=== PATIENT | male | born 1970 | race Caucasian/White ===

== ENCOUNTER 2017-03-08 16:54 | Inpatient (IN) | payer MEDICAID ==
[2017-03-08] MEDS ORDERED: HYDROmorphone 0.5 MG/0.5 ML Syringe IVPUSH ONE (17:38)
--- NOTE | 2017-03-08 17:43 | EDM.PDOC ---
<Chidi Sparks - Last Filed: 03/08/17 17:38> ED HPI GENERAL MEDICAL PROBLEM - General Chief Complaint: Abdominal Pain Stated Complaint: LOWER ABD PAIN Time Seen by Provider: 03/08/17 17:30 Source of Information: Reports: Patient, Old Records, RN History Limitations: Reports: No Limitations - History of Present Illness INITIAL COMMENTS - FREE TEXT/NARRATIVE: 47 yo male presents with progressive RLQ abdominal pain for nearly a week. Thinks he may have had a fever at times. No self tx today. Pain does not move around. Moving or coughing increases his pain. No known exposures. Vomited several times last Th, then once more last night. No prior abdominal surgeries. Has not been seen for this problem before today. No change in bowel or bladder function. No current nausea. 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) Right Lower Abdomen Pain Score (Numeric/FACES): 6 - Related Data Allergies Allergy/AdvReac Type Severity Reaction Status Date / Time cat dander Allergy Chest Verified 10/10/14 23:23 Presssure turkey feathers Allergy Chest Uncoded 10/10/14 23:23 Presssure Home Meds: Home Meds Aspirin [Aspirin EC] 81 mg PO DAILY 10/10/14 [History] Insulin Aspart [NovoLOG] 10 units SUBCUT TID 10/10/14 [History] Insulin Detemir [Levemir] 64 units SUBCUT BID 10/10/14 [History] Lisinopril [Lisinopril] 10 mg PO DAILY 10/10/14 [History] Ranitidine HCl [Zantac] 150 mg PO BID 03/08/17 [History] Simvastatin [Zocor] 03/08/17 [History] Past Medical History Cardiovascular History: Reports: Hypertension Gastrointestinal History: Reports: GERD Endocrine/Metabolic History: Reports: Diabetes, Type I - Infectious Disease History Infectious Disease History: Reports: Chicken Pox, Measles, Mumps - Past Surgical History Head Surgeries/Procedures: Reports: None Cardiovascular Surgical History: Reports: None GI Surgical History: Reports: None Endocrine Surgical History: Reports: None Dermatological Surgical History: Reports: None Social & Family History - Family History Family Medical History: Noncontributory Cardiac: Reports: Pulmonary Hypertension - Tobacco Use Smoking Status *Q: Current Every Day Smoker Years of Tobacco use: 33 Packs/Tins Daily: 0.5 Used Tobacco, but Quit: No Second Hand Smoke Exposure: Yes - Caffeine Use Caffeine Use: Reports: Coffee, Soda, Tea - Recreational Drug Use Recreational Drug Use: No ED ROS GENERAL - Review of Systems Review Of Systems: See Below Constitutional: Reports: Fever (has not measured.) HEENT: Reports: No Symptoms Respiratory: Reports: No Symptoms Cardiovascular: Reports: Lightheadedness (mildy dizzy with standing) Endocrine: Reports: No Symptoms GI/Abdominal: Reports: Abdominal Pain, Nausea (not today.), Vomiting (not today) . Denies: Black Stool, Bloody Stool, Constipation, Diarrhea, Distension, Flatus , Hematemesis, Hematochezia, Melena : Reports: No Symptoms Musculoskeletal: Reports: No Symptoms Skin: Reports: No Symptoms Neurological: Reports: No Symptoms ED EXAM, GI/ABD - Physical Exam Exam: See Below Exam Limited By: No Limitations General Appearance: Alert, WD/WN, No Apparent Distress, Obese Eyes: Bilateral: Normal Appearance Ears: Normal External Exam, Normal Canal, Hearing Grossly Normal Nose: Normal Inspection, Normal Mucosa, No Blood Throat/Mouth: Normal Lips, Normal Oropharynx, Normal Voice, No Airway Compromise , Other (edentulous with slightly dry oral mucosa.). No: Normal Teeth Head: Atraumatic, Normocephalic Neck: Normal Inspection, Supple Respiratory/Chest: No Respiratory Distress, Lungs Clear, Normal Breath Sounds, No Accessory Muscle Use Cardiovascular: Regular Rate, Rhythm, Tachycardia (mildly tachy) GI/Abdominal Exam: No Distention, Guarding (mild), Rebound (mild), Tender (RLQ) , Abnormal Bowel Sounds (slightly increased.). No: Rigid Back Exam: Normal Inspection Extremities: Normal Inspection, Normal Range of Motion, Non-Tender, No Pedal Edema Neurological: Alert, Oriented, CN II-XII Intact, Normal Cognition, No Motor/ Sensory Deficits Psychiatric: Normal Affect, Normal Mood Skin Exam: Warm, Dry, Intact, Normal Color, No Rash Lymphatic: No Adenopathy Course - Vital Signs Last Recorded V/S: Last Vital Signs Temp 37.8 C 11/30/17 17:25 Pulse 105 H 03/08/17 19:30 Resp 20 03/08/17 19:30 BP 148/81 H 03/08/17 19:30 Pulse Ox 98 03/08/17 19:30 Orthostatic Blood Pressure [ 120/81 Standing] Orthostatic Blood Pressure [ 137/86 Sitting] Orthostatic Blood Pressure [ 138/81 Supine] - Orders/Labs/Meds Orders: Active Orders 24 hr Category Date Time Status Orthostatic Vital Signs [RC] ASDIRECTED Care 03/08/17 17:37 Active Abdomen Pelvis w Cont [CT] Stat Exams 03/08/17 18:45 Taken CULTURE URINE [RM] Stat Lab 03/08/17 18:43 Received Ampicillin/Sulbactam Na [Unasyn] 3 gm Med 03/08/17 20:20 Ordered Sodium Chloride 0.9% [Normal Saline] 100 ml IV ONETIME Aztreonam [Azactam] 1 gm Med 03/08/17 20:20 Ordered Sodium Chloride 0.9% [Normal Saline] 50 ml IV ONETIME Iopamidol [Isovue-300 (61%)] Med 03/08/17 19:00 Active 150 ml IV . DIRECTED Sodium Chloride 0.9% [Saline Flush] Med 03/08/17 17:37 Active 10 ml FLUSH ASDIRECTED PRN Saline Lock Insert [OM.PC] Routine Oth 03/08/17 17:37 Ordered Medication Orders Aztreonam 1 gm/ Sodium (Chloride) 50 mls @ 100 mls/hr IV ONETIME ONE Stop: 03/08/17 20:49 Ampicillin Sodium/Sulbactam (Sodium 3 gm/ Sodium Chloride) 100 mls @ 200 mls/ hr IV ONETIME ONE Stop: 03/08/17 20:49 Iopamidol (Isovue-300 (61%)) 150 ml IV . DIRECTED OLMAN Last Admin: 03/08/17 19:18 Dose: 150 ml Sodium Chloride (Saline Flush) 10 ml FLUSH ASDIRECTED PRN PRN Reason: Keep Vein Open Last Admin: 03/08/17 19:17 Dose: 10 ml Admin: 03/08/17 18:02 Dose: 10 ml Labs: Laboratory Tests 03/08/17 03/08/17 03/08/17 Range/Units 18:02 18:02 18:26 WBC 22.9 H (4.5-11.0) K/uL RBC 4.88 (4.30-5.90) M/uL Hgb 13.8 (12.0-15.0) g/dL Hct 41.3 (40.0-54.0) % MCV 85 (80-98) fL MCH 28 (27-31) pg MCHC 33 (32-36) % Plt Count 350 (150-400) K/uL Sodium 132 L (140-148) mmol/L Potassium 4.6 (3.6-5.2) mmol/L Chloride 97 L (100-108) mmol/L Carbon Dioxide 25 (21-32) mmol/L Anion Gap 14.6 H (5.0-14.0) mmol/L BUN 16 (7-18) mg/dL Creatinine 1.2 (0.8-1.3) mg/dL Est Cr Clr Drug Dosing 74.46 mL/min Estimated GFR (MDRD) > 60 (>60) Glucose 131 H (74-106) mg/dL Calcium 8.8 (8.5-10.1) mg/dL C-Reactive Protein 12.48 H (0.0-0.3) mg/dL Urine Color Wells Urine Appearance Cloudy Urine pH 5.0 (4.5-8.0) Ur Specific [place] 1.020 (1.008-1.030) Urine Protein 30 H (NEGATIVE) mg/dL Urine Glucose (UA) Normal (NEGATIVE) mg/dL Urine Ketones 15 H (NEGATIVE) mg/dL Urine Occult Blood Large (NEGATIVE) Urine Nitrite Negative (NEGAITVE) Urine Bilirubin Small (NEGATIVE) Urine Urobilinogen 1 (NORMAL) mg/dL Ur Leukocyte Esterase Negative (NEGATIVE) Urine RBC 5-10 H (0-5) Urine WBC 5-10 H (0-5) Ur Epithelial Cells Rare Amorphous Sediment Few Urine Bacteria Rare Urine Mucus Few Meds: Medications Generic Name Dose Route Start Last Admin Trade Name Freq PRN Reason Stop Dose Admin Aztreonam 1 gm/ Sodium 50 mls @ 100 mls/hr 03/08/17 20:20 Chloride IV 03/08/17 20:49 ONETIME ONE Ampicillin Sodium/Sulbactam 100 mls @ 200 mls/hr 03/08/17 20:20 Sodium 3 gm/ Sodium Chloride IV 03/08/17 20:49 ONETIME ONE Iopamidol 150 ml 03/08/17 19:00 03/08/17 19:18 Isovue-300 (61%) IV 150 ml . DIRECTED OLMAN Administration Sodium Chloride 10 ml 03/08/17 17:37 03/08/17 19:17 Saline Flush FLUSH 10 ml ASDIRECTED PRN Administration Keep Vein Open Discontinued Medications Generic Name Dose Route Start Last Admin Trade Name Sameer PRN Reason Stop Dose Admin Hydromorphone HCl 0.5 mg 03/08/17 17:38 03/08/17 18:02 Dilaudid IVPUSH 03/08/17 17:39 0.5 mg ONETIME ONE Administration Sodium Chloride 1,000 mls @ 1,000 mls/hr 03/08/17 17:49 03/08/17 18:07 Normal Saline IV 03/08/17 18:48 1,000 mls/hr .BOLUS ONE Administration Sodium Chloride 1,000 mls @ 999 minidrops/sec 03/08/17 18:26 03/08/17 20:21 Normal Saline IV 03/08/17 18:27 Not Given .BOLUS ONE Sodium Chloride 80 mls @ 3 mls/sec 03/08/17 19:00 03/08/17 19:17 Normal Saline IV 3 mls/sec ASDIRECTED OLMAN Administration Sodium Chloride 1,000 mls @ 999 mls/hr 03/08/17 19:14 03/08/17 19:28 Normal Saline IV 03/08/17 20:14 999 mls/hr .BOLUS ONE Administration Departure - Departure Disposition: Admitted As Inpatient 64 Clinical Impression: Ruptured appendix - Discharge Information Referrals: Nakul Garcia MD [Primary Care Provider] - Forms: ED Department Discharge Care Plan Goals: admit to Dr Ramsey Garzon - My Orders Last 24 Hours: My Active Orders 03/08/17 18:43 CULTURE URINE [RM] Stat 03/08/17 18:45 Abdomen Pelvis w Cont [CT] Stat 03/08/17 19:00 Iopamidol [Isovue-300 (61%)] 150 ml IV . DIRECTED 03/08/17 20:20 Ampicillin/Sulbactam Na [Unasyn] 3 gm Sodium Chloride 0.9% [Normal Saline] 100 ml IV ONETIME Aztreonam [Azactam] 1 gm Sodium Chloride 0.9% [Normal Saline] 50 ml IV ONETIME - Assessment/Plan Last 24 Hours: My Active Orders 03/08/17 18:43 CULTURE URINE [RM] Stat 03/08/17 18:45 Abdomen Pelvis w Cont [CT] Stat 03/08/17 19:00 Iopamidol [Isovue-300 (61%)] 150 ml IV . DIRECTED 03/08/17 20:20 Ampicillin/Sulbactam Na [Unasyn] 3 gm Sodium Chloride 0.9% [Normal Saline] 100 ml IV ONETIME Aztreonam [Azactam] 1 gm Sodium Chloride 0.9% [Normal Saline] 50 ml IV ONETIME <Elizabeth Camacho - Last Filed: 03/08/17 20:30> Course - Re-Assessments/Exams Free Text/Narrative Re-Assessment/Exam: 03/08/17 20:21 cat scan revealed a ruptured appendix with abcess formation, Dr Garzon was consulted and he lars do surgery at 5 thirty AM 03/08/17 20:28 Departure - Departure Time of Disposition: 20:29 Condition: Fair
[2017-03-08] MEDS ORDERED: Sodium Chloride 0.9% 1,000 ML IV ONE ×3 (17:49→19:14)
[2017-03-08] MEDS: Sodium Chloride 0.9% 10 ML Syringe FLUSH PRN ×2 (18:02→19:17)
[2017-03-08] MEDS ORDERED: Sodium Chloride 0.9% 80 ML IV SCH (19:00)
[2017-03-08] MEDS ORDERED: Iopamidol 612 MG/ML 150 ML Bottle IV SCH (19:00)
[2017-03-08] MEDS ORDERED: Ampicillin/Sulbactam Na 3 GM in Sodium Chloride 0.9% 100 ML IV ONE (20:20)
[2017-03-08] MEDS ORDERED: Ondansetron 4 MG/2 ML SDV IVPUSH PRN (20:30)
[2017-03-08] MEDS ORDERED: Naloxone 0.4 MG/ML SDV IV PRN (20:30)
[2017-03-08] MEDS ORDERED: HYDROmorphone/Normal Saline 15 MG/30 ML PCA IV PRN (20:30)
[2017-03-08] MEDS ORDERED: Sodium Chloride 0.9% 1,000 ML IV SCH (20:30)
[2017-03-09] MEDS ORDERED: Ampicillin/Sulbactam Na 3 GM in Sodium Chloride 0.9% 100 ML IV SCH ×2 (02:30→08:00)
[2017-03-09] MEDS ORDERED: Bupivacaine 0.5%/EPINEPHrine 1:200,000 50 ML MDV ONE (04:51)
[2017-03-09] MEDS ORDERED: fentaNYL 250 MCG/5 ML SDV ONE ×2 (05:30→05:58)
[2017-03-09] MEDS ORDERED: Rocuronium 50 MG/5 ML Vial ONE ×2 (05:31→06:39)
[2017-03-09] MEDS ORDERED: Ondansetron 4 MG/2 ML SDV ONE (05:31)
[2017-03-09] MEDS ORDERED: Dexamethasone 4 MG/ML SDV ONE (05:31)
[2017-03-09] MEDS ORDERED: Propofol 200 MG/20 ML SDV ONE (05:31)
[2017-03-09] MEDS ORDERED: Neostigmine Methylsulfate 1 MG/ML 5 ML Syringe ONE (05:31)
[2017-03-09] MEDS ORDERED: Glycopyrrolate 0.2 MG/ML 5 ML MDV ONE (05:31)
[2017-03-09] MEDS: Aztreonam/Dextrose-Water 1 GM in Premix Bag 1 BAG IV SCH ×3 (05:45→22:22)
[2017-03-09] MEDS ORDERED: Meropenem 500 MG SDV ONE (06:00)
[2017-03-09] MEDS ORDERED: Lactated Ringers 1,000 ML ONE (06:04)
[2017-03-09] MEDS: fentaNYL 25 MCG/HR Transdermal Patch TRDERM SCH (06:41)
[2017-03-09] MEDS ORDERED: HYDROmorphone/Normal Saline 15 MG/30 ML PCA IV PRN (07:24)
[2017-03-09] MEDS ORDERED: hydrOXYzine HCl 100 MG/2 ML SDV IM ONE (08:00)
[2017-03-09] MEDS ORDERED: Ondansetron 4 MG/2 ML SDV IVPUSH PRN (08:29)
[2017-03-09] MEDS ORDERED: hydrOXYzine HCl 100 MG/2 ML SDV IM PRN (08:32)
[2017-03-09] MEDS ORDERED: hydrOXYzine HCl 25 MG Tab PO PRN (08:33)
[2017-03-09] MEDS ORDERED: Glucagon,Human Recombinant 1 MG Vial IM PRN (08:34)
[2017-03-09] MEDS ORDERED: Glucose Gel 15 GM in 37.5 GM Tube PO PRN (08:34)
[2017-03-09] MEDS ORDERED: 50% Dextrose in Water 50 ML Syringe IVPUSH PRN (08:34)
[2017-03-09] MEDS: Ampicillin/Sulbactam Na 3 GM in Sodium Chloride 0.9% 100 ML IV SCH ×3 (09:19→21:07)
[2017-03-09] MEDS: FENTANYL PATCH CHECK TOP SCH ×2 (09:24→21:15)
[2017-03-09] MEDS: Lisinopril 10 MG Tab PO SCH (09:29)
[2017-03-09] MEDS: Pantoprazole 40 MG Vial IV SCH (09:29)
[2017-03-09] MEDS: Insulin Detemir 100 Units/ML 3 ML Pen SUBCUT SCH ×2 (10:01→21:10)
[2017-03-09] MEDS: Insulin Aspart 100 Units/ML 3 ML Pen SUBCUT PRN ×3 (10:03→21:09)
[2017-03-09] MEDS: Lactated Ringers 1,000 ML IV SCH (12:15)
[2017-03-09] MEDS: Dextrose 5%-Lactated Ringers 1,000 ML IV SCH (17:53)
[2017-03-10] MEDS: Ampicillin/Sulbactam Na 3 GM in Sodium Chloride 0.9% 100 ML IV SCH ×4 (02:08→20:04)
[2017-03-10] MEDS: Dextrose 5%-Lactated Ringers 1,000 ML IV SCH ×3 (02:15→21:11)
[2017-03-10] MEDS: Lactated Ringers 1,000 ML IV SCH (02:15)
[2017-03-10] MEDS: Aztreonam/Dextrose-Water 1 GM in Premix Bag 1 BAG IV SCH ×3 (05:32→21:55)
[2017-03-10] MEDS: Pantoprazole 40 MG Vial IV SCH (07:57)
[2017-03-10] MEDS: Insulin Detemir 100 Units/ML 3 ML Pen SUBCUT SCH ×2 (08:13→23:12)
[2017-03-10] MEDS: Lisinopril 10 MG Tab PO SCH (08:15)
[2017-03-10] MEDS: FENTANYL PATCH CHECK TOP SCH ×2 (08:31→20:12)
[2017-03-10] MEDS: Insulin Aspart 100 Units/ML 3 ML Pen SUBCUT PRN (11:41)
[2017-03-11] MEDS: Ampicillin/Sulbactam Na 3 GM in Sodium Chloride 0.9% 100 ML IV SCH ×4 (01:37→20:00)
[2017-03-11] MEDS: Dextrose 5%-Lactated Ringers 1,000 ML IV SCH ×3 (03:05→18:12)
[2017-03-11] MEDS: Aztreonam/Dextrose-Water 1 GM in Premix Bag 1 BAG IV SCH ×3 (05:18→22:16)
[2017-03-11] MEDS: Insulin Aspart 100 Units/ML 3 ML Pen SUBCUT PRN ×4 (05:31→22:19)
[2017-03-11] MEDS ORDERED: Meropenem 500 MG SDV ONE (06:38)
[2017-03-11] MEDS ORDERED: Bupivacaine 0.5% 50 ML MDV ONE (06:38)
[2017-03-11] MEDS ORDERED: Lidocaine 1% with EPINEPHrine 1:100,000 50 ML MDV ONE (06:38)
[2017-03-11] MEDS: Pantoprazole 40 MG Vial IV SCH (07:14)
[2017-03-11] MEDS ORDERED: Propofol 200 MG/20 ML SDV ONE ×2 (07:22→07:44)
[2017-03-11] MEDS ORDERED: fentaNYL 100 MCG/2 ML SDV ONE (07:22)
[2017-03-11] MEDS ORDERED: Midazolam 1 MG/ML 2 ML SDV ONE (07:22)
[2017-03-11] MEDS: FENTANYL PATCH CHECK TOP SCH ×2 (08:45→20:39)
[2017-03-11] MEDS: Lisinopril 10 MG Tab PO SCH (08:46)
[2017-03-11] MEDS: Bisacodyl 5 MG Tab PO SCH ×2 (08:59→20:38)
[2017-03-11] MEDS ORDERED: Insulin Detemir 100 Units/ML 3 ML Pen SUBCUT ONE (09:00)
[2017-03-11] MEDS: Insulin Detemir 100 Units/ML 3 ML Pen SUBCUT SCH (09:27)
--- NOTE | 2017-03-11 14:54 | PN ---
DATE OF SERVICE: 03/10/2017 The patient has been afebrile with stable vital signs. Blood sugar control has been fairly good. Urine output was initially somewhat slow, has now picked up, and plan will be to back down on the IV to 125 mL total rate today. The plan will be to proceed with a delayed primary closure of abdominal incision in the morning, otherwise maximize activity, and work with pulmonary toilet. We will continue the present antibiotics. Saman Garzon MD /[id number]
--- NOTE | 2017-03-11 15:27 | OR ---
DATE OF PROCEDURE: 03/11/2017 PREOPERATIVE DIAGNOSIS: Open abdominal incision. POSTOPERATIVE DIAGNOSIS: Open abdominal incision. OPERATIVE PROCEDURE: Delayed primary closure of open abdominal incision. ANESTHESIA: Local plus IV sedation. INDICATIONS FOR PROCEDURE: The patient is 48 hours status post right colectomy for perforated appendicitis with pericolonic abscess and associated necrosis of a portion of the cecum. Because of the obvious contaminated nature of the incision, the skin and subcutaneous tissues were left open for planned delayed primary closure at this time. Potential risks including bleeding and infection were reviewed, and the patient wishes to proceed. DETAILS OF PROCEDURE: The patient was taken to the operating room and placed in a supine position, sitting up around 30 degrees to minimize aspiration risk. The abdominal dressing was taken down, the wound inspected and found to be clean. The wound was then prepped and draped, anesthetized with 1% lidocaine, mixed with Marcaine, and irrigated with meropenem- containing saline solution. A 10-Upper Sorbian round Robb-Jauregui drain was then placed through a stab wound inferior to the main incision, and incision then closed with 2 layers of 3-0 and 4-0 Vicryl stitch deep, and then som for the skin. The 2 remaining trocar sites used for initial laparoscopic ports were also then anesthetized, irrigated, and closed with som. The patient had no evident complications and was taken to the recovery room in satisfactory condition. Saman Garzon MD /[id number]
--- NOTE | 2017-03-11 16:30 | PN ---
DATE OF SERVICE: 03/10/2017 The patient has been afebrile with stable vital signs. He does appear to be aspirating somewhat when eating and we will have him take any oral upright position. I set him up for x-ray swallow study with speech pathology evaluation on Sunday. Otherwise, the Gram stain on the BAL pneumonia, came back showing gram-positive cocci. Vancomycin has poor tissue penetration in terms of pneumonia, I will therefore switch him to Zyvox pending C and S results. Otherwise, maximize activity and work with pulmonary toilet. He has been restarted on the Mucomyst, which seemed to be helping him clear the secretion somewhat better as well. Saman Garzon MD /[id number]
--- NOTE | 2017-03-11 16:51 | PN ---
DATE OF SERVICE: 03/11/2017 The patient has been afebrile with stable vital signs. He underwent a delayed primary closure of the abdominal incision without incident today. He feels some gas moving around, but not passing any gas. No nausea as of yet. Blood sugars were fairly low last night around 85, so we did not give him his evening Levemir dose. It was around 150 this morning. So, I think we will go with the single morning dose for today. Otherwise, we will begin the bowel stimulation with Senna Plus, plus Dulcolax tablets. Crocker catheter will come out. We will continue the present antibiotics pending C and S results. Saman Garzon MD /[id number]
[2017-03-11] MEDS ORDERED: Bacitracin Oint 1 GM U/D Packet TOP ONE (20:07)
[2017-03-12] MEDS: Ampicillin/Sulbactam Na 3 GM in Sodium Chloride 0.9% 100 ML IV SCH ×4 (01:05→19:46)
[2017-03-12] MEDS: Insulin Aspart 100 Units/ML 3 ML Pen SUBCUT PRN ×4 (04:49→21:24)
[2017-03-12] MEDS: Aztreonam/Dextrose-Water 1 GM in Premix Bag 1 BAG IV SCH ×3 (06:04→21:25)
[2017-03-12] MEDS: fentaNYL 25 MCG/HR Transdermal Patch TRDERM SCH (07:25)
[2017-03-12] MEDS: Pantoprazole 40 MG Vial IV SCH (07:59)
--- NOTE | 2017-03-12 08:39 | PN ---
DATE OF SERVICE: 03/12/2017 SUBJECTIVE: Lazarus is postop day #3. He has been up ambulating. Pain is controlled. He did have 2 large bowel movements. Blood sugar this morning was 162 and last evening was 140. He has no other questions or concerns. OBJECTIVE: GENERAL: Lazarus Jennings is a 47-year-old male. He is alert and orientated, sitting up in the chair. VITAL SIGNS: TPR 97.6, 97, 16, and blood pressure 117/82. HEENT: Negative. NECK: Supple. HEART: Regular rate and rhythm. LUNGS: Clear. ABDOMEN: Dressings dry and intact. Three HARDEEP drains are intact and have put out 330 respectively of a slightly cloudy serosanguineous drainage, pink in color. EXTREMITIES: Without peripheral edema. ASSESSMENT: Laparoscopic turned to laparotomy with right colectomy and drainage of pericolonic abscess for perforated appendicitis with necrosis of the cecal base and pericolonic abscess. Date, 03/09/2017. PLAN: 1. Discontinue HARDEEP drains #1 and #2, leaving midline round incision HARDEEP. 2. Shower. 3. Full liquid diet. 4. Levemir 40 units subcu this a.m. at 0900 hours. 5. Decrease IV to 80 mL/hour. 6. Discontinue scheduled Dulcolax tablets. 7. Discontinue CLOTH EDGE SINGER and continuous pulse ox. 8. [place] 5/325 mg 1 to 2 q.4 hours p.r.n. pain. 9. Good pulmonary toilet. 10.We will evaluate p.r.n. or in a.m. Patricia Garcia PA-C /[id number]
[2017-03-12] MEDS: FENTANYL PATCH CHECK TOP SCH ×2 (08:52→20:01)
[2017-03-12] MEDS: Bisacodyl 5 MG Tab PO SCH (08:53)
[2017-03-12] MEDS: Lisinopril 10 MG Tab PO SCH (08:53)
[2017-03-12] MEDS ORDERED: Insulin Detemir 100 Units/ML 3 ML Pen SUBCUT ONE (09:00)
[2017-03-12] MEDS: Acetaminophen/HYDROcodone 325-5 MG Tab PO PRN ×3 (10:08→21:24)
[2017-03-12] MEDS: Dextrose 5%-Lactated Ringers 1,000 ML IV SCH (11:41)
--- NOTE | 2017-03-12 13:30 | OR ---
DATE OF PROCEDURE: 03/09/2017 PREOPERATIVE DIAGNOSIS: Perforated appendicitis with periappendiceal abscess. POSTOPERATIVE DIAGNOSES: Perforated appendicitis with associated necrosis of base of cecum and pericolonic abscess. OPERATIVE PROCEDURES: Diagnostic laparoscopy converted to laparotomy with; 1. Right colectomy (74102). 2. Drainage of pericolonic abscess (77518). ANESTHESIA: General. INDICATION FOR PROCEDURE: This is a 47-year-old with type 2 diabetes, admitted overnight with acute appendicitis, associated with a periappendiceal abscess located more or less posterior to the cecum. The patient was admitted overnight for hydration, IV antibiotics, and is to undergo a diagnostic laparoscopy, laparotomy if necessary, and probable appendectomy. The patient is aware that more extensive procedure may be required depending on operative findings. Potential risks including bleeding, infection, injury to underlying viscera, leaks from various GI tract closures, as well as possibility of cardiopulmonary, septic, or hemorrhagic complications leading to were all discussed, and the patient wishes to proceed. DETAILS OF PROCEDURE: The patient was taken to the operating room and placed in a supine position. After general endotracheal anesthesia was induced, a Crocker catheter was inserted and the abdomen was prepped and draped. Three fingerbreadths superior and to the left of the umbilicus, a transverse incision was made, and the peritoneal cavity was entered under direct vision with an Optiview trocar and inflated to 15 mmHg pressure of CO2. Laparoscope was then reinserted. No underlying trocar insertion site injuries were seen. Following this, a 12-mm trocar was placed in the right upper quadrant as well as left lower quadrant, and the area around the cecum was examined. After a brief period of attempted dissection, it became evident that this was extremely densely adherent and would not be amenable to a laparoscopic approach. This likely has to do with this process having been going on for approximately a week prior to him presenting to the hospital. At that point, the trocars were removed, and the peritoneal cavity was deflated. A midline incision was then more or less extended from little bit below the umbilicus up to the midabdomen. This was located in this area based on the location of the cecum as seen during the laparoscopic phase, carried down through the skin and subcutaneous tissue, and through the full thickness abdominal wall. Upon entering the peritoneal cavity, dissection around the cecum was then initiated. Peritoneal reflection about the cecum and ascending colon was then divided. This then allowed mobilization of the cecum medially. A large abscess was then encountered. Cultures of this were obtained as the abscess cavity was evacuated. Upon mobilization of the cecum, the appendix was identified posteriorly. This, however, was markedly necrotic, and there was a large necrotic defect in the base of the cecum in a location quite close to the ileocecal valve. This did not appear to be something that could locally be adequately repaired and the decision was made to proceed with a right colectomy. The remaining peritoneal reflection of the ascending colon was then divided and attachments to the hepatic flexure likewise divided. This allowed medial mobilization of the right colon including hepatic flexure away from its retroperitoneal attachments. During the course of this dissection, care was taken to avoid injury to the right ureter and duodenum. At that point, the transverse colon somewhat to the right of the midline was divided with a CRISTOBAL purple load, and the distal small bowel was then divided with a CRISTOBAL coulter load. The mesentery between the two locations was divided with a combination of vascular and mesenteric loads, and the specimen delivered from the field. At this point, we initially irrigated the area along the right side of the abdomen and pelvis with some meropenem-containing saline solution and the plane of the ureter was noted to be undisturbed, and the duodenum was visualized to be uninjured. At this point, a [id number] ileocolic anastomosis was accomplished with 2 internal firings of the CRISTOBAL coulter load initially placed, and the common opening was then closed transversely with 2 purple loads. The angles of anastomosis and mesenteric defect were then approximated with some 3-0 Vicryl stitch, and the anastomosis was reinforced with fibrin sealant as well. At this point, no further problems were noted. Two Robb-Jauregui drains in the right abdomen and one of them through the original right upper quadrant trocar site, one was placed along the right pericolic gutter, and the other one somewhat lower down into the depths of the pelvis. At that point, the midline fascia was approximated with #2 Vicryl stitch. The skin and subcutaneous tissue were obviously at high risk for a wound infection, were packed open for a planned delayed primary closure in 48 hours. The patient was taken to the recovery room in a satisfactory condition. Saman Garzon MD /[id number]
[2017-03-13] MEDS: Ampicillin/Sulbactam Na 3 GM in Sodium Chloride 0.9% 100 ML IV SCH ×2 (02:04→07:56)
[2017-03-13] MEDS: Dextrose 5%-Lactated Ringers 1,000 ML IV SCH (02:06)
[2017-03-13] MEDS: Aztreonam/Dextrose-Water 1 GM in Premix Bag 1 BAG IV SCH (05:23)
[2017-03-13 07:49] VITALS: BP 116/78
[2017-03-13] MEDS: Pantoprazole 40 MG Vial IV SCH (07:52)
[2017-03-13] MEDS: Insulin Aspart 100 Units/ML 3 ML Pen SUBCUT PRN (07:56)
[2017-03-13] MEDS: FENTANYL PATCH CHECK TOP SCH (08:00)
--- NOTE | 2017-03-13 08:27 | DISCH ---
ADMISSION DIAGNOSES: 1. Abdominal pain. 2. Hypertension. 3. Gastroesophageal reflux disease. 4. Diabetes type 1. 5. Morbid obesity. 6. Nicotine addiction. DISCHARGE DIAGNOSES: Diagnostic laparoscopy converted to laparotomy with right colectomy and drainage of pericolonic abscess for perforated appendicitis with associated necrosis of base of the cecum and pericolonic abscess. Date of surgery 03/09/2017. HISTORY: Lazarus Jennings is a 47-year-old patient with type 1 diabetes admitted overnight with acute appendicitis associated with periappendiceal abscess located more or less posterior to the cecum, and he was admitted overnight for hydration, IV antibiotics, and is able to undergo diagnostic laparoscopy, laparotomy if necessary for probable appendectomy. After preoperative evaluation and discussion of possible risks and possible complications, the patient signed consent for operative procedure. HOSPITAL COURSE: Lazarus Jennings had no operative complications. On postop day #1, he was afebrile. Blood sugars were controlled and monitored and he was scheduled to have delayed primary closure in a.m. On 03/11/2017, Lazarus had delayed primary closure. Blood sugars were monitored. Levemir was adjusted accordingly. He was started on bowel stimulation. He was continued on the same antibiotics until cultures have returned. On postop day #3, his HARDEEP drains were discontinued leaving round HARDEEP drain in. Blood sugars were treated with Levemir 40 units subcutaneous, changed to oral pain medication. He was having bowel movements. On 03/13/2017, he was able to be discharged to home. Pain was managed, activity was good. Vital signs were stable. PHYSICAL EXAMINATION: GENERAL: Lazarus Jennings is a 47-year-old male. VITAL SIGNS: Height is 5 feet 8.11 inches, weight is 233 pounds. TPR is 97.8, 98, 16, blood pressure 116/78. HEENT: Negative. NECK: Supple. HEART: Regular rate and rhythm. LUNGS: Clear. ABDOMEN: A midline HARDEEP drain was removed prior to discharge. A 4x4 placed over HARDEEP drain site. [place] intact. Abdominal binder is on. EXTREMITIES: With trace peripheral edema. DISPOSITION: Discharged to home. CONDITION: Stable and improving. FOLLOWUP: Followup appointment with Saman Garzon MD, on 03/21/2017 at 8:30 a.m. HOME MEDICATIONS: 1. [place] 5/325 mg 1 to 2 every 4 hours p.r.n. pain, #50. 2. Augmentin 875 mg 1 tablet b.i.d. for 10 days, #20 given. 3. Fentanyl Duragesic patch. Take off on 03/16/2017. 4. Levemir 30 units subcutaneous twice daily. Home medication, he is to resume taking his: 1. Aspirin 81 mg daily. 2. Jevity 1.5 mg subcutaneous weekly. 3. NovoLog 10 units subcutaneous 3 times a day with meals. 4. Lisinopril 10 mg oral daily. 5. Zantac 150 mg oral twice daily. 6. Zocor 40 mg oral daily. DISCHARGE DIET: Diabetic diet. Drink 8 to 10 glasses of water a day. ACTIVITY: No lifting greater than 10 pounds for 6 weeks. Activity, walk at least 6 times inside your house daily. Driving, do not drive on pain medication. Shower/bathing, may shower. Keep site clean and dry. Wear abdominal binder for 6 weeks and then as tolerated. SPECIAL INSTRUCTIONS: 1. Use incentive spirometer 10 times every hour while awake for 2 weeks. 2. Notify provider of fever, increased pain, drainage nausea, or vomiting. 3. Check blood sugars twice daily and as needed and bring results in to clinic appointment.
[2017-03-13] MEDS: Acetaminophen/HYDROcodone 325-5 MG Tab PO PRN (08:53)
[2017-03-13] MEDS ORDERED: Insulin Detemir 100 Units/ML 3 ML Pen SUBCUT SCH (09:00)
[2017-03-13] MEDS: Lisinopril 10 MG Tab PO SCH (09:42)
[2017-03-14] MEDS ORDERED: Pantoprazole 40 MG Tab.CR PO SCH (07:30)
== END 2017-03-13 11:45 | disposition home or self-care (01) | DRG 329 ==
LOC: JP.ED 16:54 → JP.2SS 20:30
PROVIDERS: ADMIT Surgery; ATTEND Surgery
PROC: 0DTJ0ZZ Resection of Appendix, Open Approach (ICD-10-PCS; principal; 2017-03-09)
PROC: 0DBF0ZZ Excision of Right Large Intestine, Open Approach (ICD-10-PCS; 2017-03-09)
PROC: 0DJD4ZZ Inspection of Lower Intestinal Tract, Percutaneous Endoscopic Approach (ICD-10-PCS; 2017-03-09)
PROC: 0D9W0ZX Drainage of Peritoneum, Open Approach, Diagnostic (ICD-10-PCS; 2017-03-09)
PROC: 0WQF0ZZ Repair Abdominal Wall, Open Approach (ICD-10-PCS; 2017-03-11)
DX: K35.3 Acute appendicitis with localized peritonitis (principal); K55.049 Acute infarction of large intestine, extent unspecified; K63.0 Abscess of intestine; Z53.31 Laparoscopic surgical procedure converted to open procedure; F17.210 Nicotine dependence, cigarettes, uncomplicated; I10 Essential (primary) hypertension; K21.9 Gastro-esophageal reflux disease without esophagitis; E10.9 Type 1 diabetes mellitus without complications; Z79.4 Long term (current) use of insulin; Z48.1 Encounter for planned postprocedural wound closure; Z79.82 Long term (current) use of aspirin; T17.920A Food in respiratory tract, part unspecified causing asphyxiation, initial encounter; B96.1 Klebsiella pneumoniae [K. pneumoniae] as the cause of diseases classified elsewhere; B96.89 Other specified bacterial agents as the cause of diseases classified elsewhere; Z91.09 Other allergy status, other than to drugs and biological substances; E66.01 Morbid (severe) obesity due to excess calories; Z68.34 Body mass index [BMI] 34.0-34.9, adult
CPT/HCPCS: 36415; 74177; 80048; 81001; 82962; 85027; 86140; 87070; 87075; 87077; 87086; 87186; 87205; 88307; 94762; 96361; 96374; 99285-25; A9270-GY; C9113; J0295; J1100; J1170; J2185; J2250; J2405; J2704; J2710; J3010; J3410; J3490; J7030; J7040; J7042; J7050; J7120; S0073

== ENCOUNTER 2017-04-08 13:27 | Emergency (ER) | payer MEDICAID ==
[2017-04-08 13:54] VITALS: BP 104/73
--- NOTE | 2017-04-08 14:20 | EDM.PDOC ---
ED HPI GENERAL MEDICAL PROBLEM - General Chief Complaint: General Stated Complaint: WOUND INFECTION Time Seen by Provider: 04/08/17 14:00 Source of Information: Reports: Patient History Limitations: Reports: No Limitations - History of Present Illness INITIAL COMMENTS - FREE TEXT/NARRATIVE: 47-year-old male that had a open appendectomy one month ago has 2 small areas of his incision that is opened over the past several days, and over the past 24 hours has started oozing very purulent material. He's had a small amount of increased pain but no fever. Severity: Mild Associated Symptoms: Denies: Fever/Chills, Loss of Appetite, Nausea/Vomiting, Shortness of Breath - Related Data Allergies Allergy/AdvReac Type Severity Reaction Status Date / Time cat dander Allergy Chest Verified 10/10/14 23:23 Presssure turkey feathers Allergy Chest Uncoded 10/10/14 23:23 Presssure Home Meds: Home Meds Aspirin [Aspirin EC] 81 mg PO DAILY 10/10/14 [History] Insulin Aspart [NovoLOG] 10 units SUBCUT TID 10/10/14 [History] Lisinopril 10 mg PO DAILY 10/10/14 [History] Ammonium Lactate [Lac-Hydrin 12% Crm] 140 gm TOP BID 03/08/17 [History] Dulaglutide [Trulicity] 1.5 mg SQ WEEKLY 03/08/17 [History] Ranitidine HCl [Zantac] 150 mg PO BID 03/08/17 [History] Simvastatin [Zocor] 40 mg PO DAILY 03/08/17 [History] Acetaminophen/HYDROcodone [Aurora 325-5 MG] 1 - 2 tab PO Q4H PRN #50 tablet 03/13 [Rx] Amoxicillin/Clavulanate K [Augmentin 875 MG] 1 tab PO BID #20 tablet 03/13/17 [ Rx] Insulin Detemir [Levemir] 30 unit SUBCUT BIDAC vial 03/13/17 [Rx] Past Medical History Cardiovascular History: Reports: Hypertension Gastrointestinal History: Reports: GERD Endocrine/Metabolic History: Reports: Diabetes, Type I - Infectious Disease History Infectious Disease History: Reports: Chicken Pox, Measles, Mumps - Past Surgical History Head Surgeries/Procedures: Reports: None Cardiovascular Surgical History: Reports: None GI Surgical History: Reports: None, Appendectomy Endocrine Surgical History: Reports: None Dermatological Surgical History: Reports: None Social & Family History - Family History Family Medical History: Noncontributory Cardiac: Reports: Pulmonary Hypertension - Tobacco Use Smoking Status *Q: Never Smoker Years of Tobacco use: 32 Packs/Tins Daily: 0.5 Used Tobacco, but Quit: No Second Hand Smoke Exposure: No - Caffeine Use Caffeine Use: Reports: Coffee, Soda - Recreational Drug Use Recreational Drug Use: No ED ROS GENERAL - Review of Systems Review Of Systems: See Below Constitutional: Denies: Fever, Chills Respiratory: Denies: Shortness of Breath Cardiovascular: Denies: Chest Pain GI/Abdominal: Reports: Abdominal Pain : Reports: No Symptoms ED EXAM, GENERAL - Physical Exam Exam: See Below Exam Limited By: No Limitations General Appearance: Alert, No Apparent Distress Respiratory/Chest: No Respiratory Distress GI/Abdominal: Normal Bowel Sounds, Tender (Patient is tender to palpation along the surgical incision.), Other (There is purulent material being expelled from the openings in the incision. A culture was obtained.) Course - Vital Signs Last Recorded V/S: Last Vital Signs Temp 97.4 F 04/08/17 13:52 Pulse 86 04/08/17 13:52 Resp 14 04/08/17 13:52 BP 104/73 04/08/17 13:52 Pulse Ox 98 04/08/17 13:52 - Orders/Labs/Meds Orders: Active Orders 24 hr Category Date Time Status CULTURE WOUND + SMEAR [RM] Stat Lab 04/08/17 14:28 Results - Re-Assessments/Exams Free Text/Narrative Re-Assessment/Exam: 04/08/17 14:16 Patient was placed on Augmentin 875 mg twice a day and has a recheck with Dr. Garzon on Sunday. I asked him to inform Dr. Garzon of his antibiotic as well as a pending culture, he can return sooner if worsening despite treatment. Keep the wound clean and covered. Departure - Departure Time of Disposition: 14:34 Disposition: Home, Self-Care 01 Condition: Good Clinical Impression: Wound infection after surgery Qualifiers: Encounter type: initial encounter Qualified Code(s): T81.4XXA - Infection following a procedure, initial encounter - Discharge Information Instructions: Wound Infection, [id number] Referrals: Nakul Garcia MD [Primary Care Provider] - Forms: ED Department Discharge Care Plan Goals: Take antibiotic as prescribed twice daily with food, keep wound clean and covered and recheck on Sunday as scheduled. - My Orders Last 24 Hours: My Active Orders 04/08/17 14:28 CULTURE WOUND + SMEAR [RM] Stat - Assessment/Plan Last 24 Hours: My Active Orders 04/08/17 14:28 CULTURE WOUND + SMEAR [RM] Stat
== END 2017-04-08 14:34 | disposition home or self-care (01) ==
LOC: JP.ED 13:27
DX: T81.4XXA Infection following a procedure, initial encounter (principal); Z90.49 Acquired absence of other specified parts of digestive tract; I10 Essential (primary) hypertension; K21.9 Gastro-esophageal reflux disease without esophagitis; E10.9 Type 1 diabetes mellitus without complications; Z79.4 Long term (current) use of insulin; Z79.899 Other long term (current) drug therapy; Z79.82 Long term (current) use of aspirin; Z91.048 Other nonmedicinal substance allergy status
CPT/HCPCS: 87070; 87077; 87205; 99282

== ENCOUNTER 2017-05-24 04:41 | Day surgery (SDC) | payer MEDICAID ==
[2017-05-24] MEDS ORDERED: Acetaminophen 500 MG Tab PO ONE (05:45)
[2017-05-24] MEDS ORDERED: Dextrose 5%-Lactated Ringers 1,000 ML IV SCH (06:00)
[2017-05-24] MEDS ORDERED: Meropenem 500 MG SDV ONE (07:06)
[2017-05-24] MEDS ORDERED: Propofol 200 MG/20 ML SDV ONE (07:13)
[2017-05-24] MEDS ORDERED: fentaNYL 100 MCG/2 ML SDV ONE (07:13)
[2017-05-24] MEDS ORDERED: Midazolam 1 MG/ML 2 ML SDV ONE (07:13)
[2017-05-24] MEDS ORDERED: Bupivacaine 0.5%/EPINEPHrine 1:200,000 50 ML MDV ONE (07:52)
[2017-05-24] MEDS ORDERED: Bupivacaine 0.5% 50 ML MDV ONE (08:07)
[2017-05-24] MEDS ORDERED: Lidocaine 1% with EPINEPHrine 1:100,000 50 ML MDV ONE (08:07)
[2017-05-24 09:56] VITALS: BP 146/79
--- NOTE | 2017-05-30 02:33 | OR ---
DATE OF PROCEDURE: 05/24/2017 PREOPERATIVE DIAGNOSIS: Incompletely drained seroma of abdominal incision. POSTOPERATIVE DIAGNOSES: 1. Incompletely drained seroma of abdominal incision with focal necrosis of the etienne of the incision. 2. Focal fascial dehiscence. OPERATIVE PROCEDURES: 1. Debridement of abdominal wall (56877). 2. Repair of focal fascial dehiscence ([id number]). ANESTHESIA: Local plus IV sedation. INDICATION FOR PROCEDURE: This is a 47-year-old presenting with some incomplete drainage from a seroma from his lower abdominal incision. 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 To facilitate adequate wound care, the incision should be opened up further with debridement as necessary. Potential risks of the procedure including bleeding and infection were reviewed and the patient wishes to proceed. DETAILS OF PROCEDURE: The patient was taken to the operating room and placed in supine position. After IV sedation was administered, the abdomen was prepped and draped. Elliptical incision over the 2 areas that were open was then made and carried down through the skin and the subcutaneous tissue. There was some focal necrotizing type tissue present along the etienne of the incision as well as extending down into the fascia. This was all debrided back to clean tissue and the patient was noted at the base of the incision to have a focal fascial dehiscence. This was closed with [id number] stitch of #1 Vicryl stitch. At that point, no further problems were noted. The wound was packed with iodoform gauze and the patient was taken to the recovery room in satisfactory condition. There were no evident complications. Saman Garzon MD /[id number]
== END 2017-05-24 10:35 | disposition home or self-care (01) ==
LOC: JP.SDS 04:41
PROVIDERS: ATTEND Surgery
DX: T81.31XA Disruption of external operation (surgical) wound, not elsewhere classified, initial encounter (principal); I10 Essential (primary) hypertension; K21.9 Gastro-esophageal reflux disease without esophagitis; E11.9 Type 2 diabetes mellitus without complications; Z87.891 Personal history of nicotine dependence; J30.81 Allergic rhinitis due to animal (cat) (dog) hair and dander
CPT/HCPCS: 49900; 82962; 88304; A9270; J2250; J2704; J3010; J7042; J2185

== ENCOUNTER 2017-12-24 06:50 | Inpatient (IN) | payer MEDICAID ==
[2017-12-24] MEDS ORDERED: Celecoxib 200 MG Cap PO ONE (07:30)
[2017-12-24] MEDS ORDERED: Acetaminophen 500 MG Tab PO ONE (07:30)
[2017-12-24] MEDS ORDERED: ceFAZolin 2 GM in Premix Bag 1 BAG IV ONE (07:30)
[2017-12-24] MEDS ORDERED: Dextrose 5%-Lactated Ringers 1,000 ML IV SCH ×2 (07:30→12:00)
[2017-12-24] MEDS ORDERED: fentaNYL 250 MCG/5 ML SDV ONE (07:42)
[2017-12-24] MEDS ORDERED: HYDROmorphone/Normal Saline 15 MG/30 ML PCA IV PRN (07:43)
[2017-12-24] MEDS ORDERED: Naloxone 0.4 MG/ML SDV IV PRN (07:53)
[2017-12-24] MEDS ORDERED: Bupivacaine 0.5%/EPINEPHrine 1:200,000 50 ML MDV ONE ×2 (08:05→08:12)
[2017-12-24] MEDS ORDERED: Triamcinolone Acetonide 40 MG/ML 1 ML MDV ONE (08:12)
[2017-12-24] MEDS ORDERED: Meropenem 500 MG SDV ONE (08:13)
[2017-12-24] MEDS ORDERED: Ketamine 500 MG/5 ML MDV IV SCH (08:45)
[2017-12-24] MEDS ORDERED: Ropivacaine 58 ML, Dexamethasone 8 MG, EPINEPHrine 0.4 MG, Sodium Chloride 0.9% 19.6 ML NERVRT SCH ×4 (08:45)
[2017-12-24] MEDS ORDERED: Linezolid 200 MG/100 ML Bag IRR ONE (09:18)
[2017-12-24] MEDS ORDERED: hydrOXYzine HCl 100 MG/2 ML SDV IM ONE (09:47)
[2017-12-24] MEDS ORDERED: Propofol 200 MG/20 ML SDV ONE (09:56)
[2017-12-24] MEDS ORDERED: Dexamethasone 4 MG/ML SDV ONE (09:56)
[2017-12-24] MEDS ORDERED: Succinylcholine 200 MG/10 ML MDV ONE (09:56)
[2017-12-24] MEDS ORDERED: Ondansetron 4 MG/2 ML SDV ONE (09:56)
[2017-12-24] MEDS ORDERED: Rocuronium 50 MG/5 ML Vial ONE (09:56)
[2017-12-24] MEDS ORDERED: Neostigmine Methylsulfate 1 MG/ML 5 ML Syringe ONE (09:56)
[2017-12-24] MEDS ORDERED: Glycopyrrolate 0.2 MG/ML 5 ML MDV ONE (09:56)
[2017-12-24] MEDS ORDERED: Insulin Isophane NPH, Human 100 Units/ML 10 ML Vial SUBCUT ONE (10:20)
[2017-12-24] MEDS ORDERED: Insulin Lispro 100 Unit/ML 3 ML KwikPen SUBCUT ONE (10:30)
[2017-12-24] MEDS ORDERED: 50% Dextrose in Water 50 ML Syringe IVPUSH PRN (11:45)
[2017-12-24] MEDS ORDERED: Glucose Gel 15 GM in 37.5 GM Tube PO PRN (11:45)
[2017-12-24] MEDS ORDERED: Glucagon,Human Recombinant 1 MG Vial IM PRN (11:45)
[2017-12-24] MEDS ORDERED: hydrOXYzine HCl 100 MG/2 ML SDV IM PRN (11:51)
[2017-12-24] MEDS ORDERED: Ondansetron 4 MG/2 ML SDV IV PRN (11:51)
[2017-12-24] MEDS: ceFAZolin 2 GM in Premix Bag 1 BAG IV SCH ×2 (15:19→22:16)
[2017-12-24] MEDS: Pantoprazole 40 MG Tab.CR PO SCH (15:19)
[2017-12-24] MEDS: Insulin Lispro 100 Unit/ML 3 ML KwikPen SUBCUT SCH (16:45)
[2017-12-24] MEDS ORDERED: Insulin Lispro 100 Units/ML 3 ML Vial SUBCUT ONE (22:42)
[2017-12-24] MEDS: Insulin Lispro 100 Unit/ML 3 ML KwikPen SUBCUT PRN (22:44)
[2017-12-25] MEDS: ceFAZolin 2 GM in Premix Bag 1 BAG IV SCH (06:48)
[2017-12-25] MEDS: Pantoprazole 40 MG Tab.CR PO SCH (06:57)
[2017-12-25] MEDS ORDERED: HYDROmorphone 2 MG Tab PO PRN (07:59)
[2017-12-25] MEDS ORDERED: Dextrose 5%-Lactated Ringers 1,000 ML IV SCH (08:00)
[2017-12-25] MEDS ORDERED: TOUJEO 300 UNIT/ML SUBCUT SCH (08:00)
[2017-12-25] MEDS: Lisinopril 10 MG Tab PO SCH (08:04)
[2017-12-25] MEDS: Aspirin 81 MG Tab.EC PO SCH (08:04)
[2017-12-25] MEDS: Insulin Detemir 100 Units/ML 3 ML Pen SUBCUT SCH ×2 (08:05→20:56)
[2017-12-25] MEDS: Insulin Lispro 100 Unit/ML 3 ML KwikPen SUBCUT SCH ×3 (08:06→16:37)
[2017-12-25] MEDS: Insulin Lispro 100 Unit/ML 3 ML KwikPen SUBCUT PRN ×3 (08:07→21:01)
[2017-12-25] MEDS: Bisacodyl 5 MG Tab PO SCH ×2 (09:23→20:52)
[2017-12-25] MEDS: Docusate Sodium 100 MG Cap PO SCH ×2 (09:23→20:52)
--- NOTE | 2017-12-25 11:40 | PN ---
DATE OF SERVICE: 12/25/2017 The patient is postop day #1 from repair of an incarcerated incisional and incarcerated umbilical hernia with mesh, done laparoscopically. Blood sugars tended to be somewhat high overnight. He will be restarting on his usual long-acting insulin this morning, and we will turn down the IV rate to 80 mL an hour. Otherwise, continue with regular diet. We will begin some scheduled bowel stimulant. Saman Garzon MD /[id number]
[2017-12-25] MEDS ORDERED: Insulin Lispro 100 Unit/ML 3 ML KwikPen SUBCUT ONE (11:45)
--- NOTE | 2017-12-25 14:49 | OR ---
DATE OF PROCEDURE: 12/24/2017 PREOPERATIVE DIAGNOSIS: Incisional hernia. POSTOPERATIVE DIAGNOSES: 1. Incarcerated incisional hernia. 2. Incarcerated umbilical hernia. 3. Extensive intraabdominal adhesions. OPERATIVE PROCEDURES: Diagnostic laparoscopy with lysis of extensive adhesions and; 1. Repair of incarcerated incisional hernia with mesh (74068). 2. Repair of incarcerated umbilical hernia with mesh (19980). 3. Placement of Vicryl mesh to displace pelvic and abdominal wall and newly-placed mesh from underlying viscera to limit recurrent adhesion formation. XRAY TECH: Patricia Garcia PA-C. ANESTHESIA: General. INDICATIONS: A 47-year-old status post upper midline incision, presenting with a large incisional hernia. The plan is to proceed with repair of this. We will attempt a laparoscopic approach. Potential risks including bleeding, infection, injury to underlying viscera, problems with the hernia recurring or the mesh becoming infected were all reviewed, and the patient wishes to proceed. DETAILS OF PROCEDURE: The patient was taken to the operating room and placed in a supine position. After general endotracheal anesthesia was induced, a Crocker catheter was inserted, and the abdomen prepped and draped. In the left lateral abdomen, a transverse incision was made and the peritoneal cavity entered under direct vision with an Optiview trocar. Peritoneal cavity was inflated to 15 mmHg pressure with CO2. 5-mm trocars were then placed in the left upper quadrant and right upper quadrant. Eventually, two trocars were placed on the right side as well. The patient was noted to have quite extensive adhesions between the omentum and the two areas of hernias. In addition to the large incisional hernia, the patient was noted to have smaller umbilical hernia, both of which had incarcerated omentum within them. This was taken down with a Harmonic scalpel. Following this, a Ventralight ST mesh with the balloon positioning system measuring 25.4 x 33.0 cm was selected. At the two ends of the long axis of the mesh, 2-0 Vicryl sutures were placed to help in its orientation. They were soaked in antibiotic-containing saline solution and placed in the intraperitoneal location. A total of 3 small stab wounds were placed to orient the mesh on the long axis, which was oriented in vertical midline as well as the middle one for pulling above the inflation catheter. These were all pulled up and the balloon catheter used to inflate the balloon pushing the mesh up against the abdominal wall. Mesh was then fixed circumferentially with multiple tacking screws and 3 rings. Following that, the balloon catheter was deflated. To limit adhesion formation between the viscera, the newly-placed mesh, as well as the main pelvic and abdominal etienne, a 12-cm Vicryl mesh was placed in those areas, beginning behind the urinary bladder and up against the abdominal wall and bilateral pelvic sidewalls. The trocars were then sequentially removed. The fascia at the 12-mm site was closed with 0 Vicryl stitch, and the skin with 4-0 Vicryl skin stitch. Transversus abdominis plane blocks had been placed bilaterally. The patient was taken to the recovery room in a satisfactory condition. Physician entry level assistant manager, Patricia Garcia, played an essential role in assisting in this case, helping to position the patient, retract structures as needed, as well as suturing and cutting sutures when indicated. Her presence improved patient safety and decreased the operative time. Saman Garzon MD /[id number]
--- NOTE | 2017-12-25 15:23 | PCM.CONS ---
H&P History of Present Illness - General Date of Service: 12/25/17 Admit Problem/Dx: Admission Diagnosis/Problem Admission Diagnosis/Problem Hernia repair Source of Information: Patient, Family, RN Notes Reviewed History Limitations: Reports: No Limitations - History of Present Illness Initial Comments - Free Text/Narative: Mr. Jennings is a 47-year-old gentleman who I been asked to see by Dr. Garzon for further suggestions concerning evaluation and management of type 2 diabetes mellitus during hospitalization. Mr. Jennings underwent abdominal wall hernia repair yesterday by Dr. Garzon. Glucose levels have been elevated in the 300 range since surgery, but up until this time he has received IV fluids with dextrose which is likely a significant component of the hyperglycemia. He is currently receiving his usual dose of insulins, with the addition of sliding scale short acting insulin. He otherwise is feeling relatively well other than incisional pain. Abdominal Pain Score (Numeric/FACES): 3 - Related Data Allergies/Adverse Reactions: Allergies Allergy/AdvReac Type Severity Reaction Status Date / Time cat dander Allergy Chest Verified 12/24/17 07:20 Presssure horse dander Allergy Itching Verified 12/24/17 07:20 turkey feathers Allergy Chest Uncoded 12/24/17 07:20 Presssure Home Medications: Home Meds Aspirin [Aspirin EC] 81 mg PO DAILY 10/10/14 [History] Insulin Aspart [NovoLOG] 15 units SUBCUT TID 10/10/14 [History] Lisinopril 10 mg PO DAILY 10/10/14 [History] Ammonium Lactate [Lac-Hydrin 12% Crm] 140 gm TOP BID 03/08/17 [History] Dulaglutide [Trulicity] 1.5 mg SQ WEEKLY 03/08/17 [History] Ranitidine HCl [Zantac] 150 mg PO BID 03/08/17 [History] Simvastatin [Zocor] 40 mg PO DAILY 03/08/17 [History] Insulin Glargine,Hum.Rec.Anlog [Toujeo Solostar] 70 unit SQ QAM 12/15/17 [ History] Past Medical History HEENT History: Reports: Other (See Below) Other HEENT History: wears reading glasses Cardiovascular History: Reports: High Cholesterol, Hypertension Respiratory History: Reports: Sleep Apnea Gastrointestinal History: Reports: GERD Musculoskeletal History: Reports: Fracture, Other (See Below) Other Musculoskeletal History: left thumb fracture Neurological History: Reports: Neuropathy, Diabetic Endocrine/Metabolic History: Reports: Diabetes, Type II, Obesity/BMI 30+ Dermatologic History: Reports: Other (See Below) Other Dermatologic History: calluses on feet - Infectious Disease History Infectious Disease History: Reports: Chicken Pox, Mumps, Shingles - Past Surgical History Head Surgeries/Procedures: Reports: None HEENT Surgical History: Reports: Oral Surgery Cardiovascular Surgical History: Reports: None GI Surgical History: Reports: Appendectomy, Colon Endocrine Surgical History: Reports: None Musculoskeletal Surgical History: Reports: Carpal Tunnel, Other (See Below) Other Musculoskeletal Surgeries/Procedures:: ACL repair right knee, bone shaved from right great toe Dermatological Surgical History: Reports: None Social & Family History - Family History Family Medical History: Noncontributory HEENT: Reports: Cataract Cardiac: Reports: [place] Neurological: Reports: CVA Endocrine/Metabolic: Reports: Diabetes, Type I - Tobacco Use Smoking Status *Q: Former Smoker Years of Tobacco use: 30 Packs/Tins Daily: 3 Used Tobacco, but Quit: Yes Month/Year Tobacco Last Used: Second Hand Smoke Exposure: No - Caffeine Use Caffeine Use: Reports: Coffee, Soda - Recreational Drug Use Recreational Drug Use: No H&P Review of Systems - Review of Systems: Review Of Systems: See Below General: Denies: Fever, Chills, Weakness Pulmonary: Reports: No Symptoms Cardiovascular: Reports: No Symptoms Gastrointestinal: Reports: Other (Incisional pain). Denies: Anorexia, Black Stool, Bloody Stool, Constipation, Diarrhea, Difficulty Swallowing, Distension, Nausea, Vomiting Genitourinary: Reports: No Symptoms Exam - Exam Exam: See Below - Vital Signs Vital Signs: Last Vital Signs Temp 96.9 F 12/25/17 14:25 Pulse 95 12/25/17 14:25 Resp 18 12/25/17 14:25 BP 136/75 12/25/17 14:25 Pulse Ox 96 12/25/17 14:25 Weight: 249 lb 3.2 oz - Exam Quality Assessment: DVT Prophylaxis General: Alert, Oriented, Cooperative, Mild Distress Neck: Supple, Trachea Midline, +2 Carotid Pulse wo Bruit Lungs: Clear to Auscultation, Normal Respiratory Effort Cardiovascular: Regular Rate, Regular Rhythm, Normal S1, Normal S2. No: Systolic Murmur, Diastolic Murmur GI/Abdominal Exam: Soft, No Organomegaly, No Distention, Tender. No: Guarding, Rigid, Rebound Extremities: Non-Tender, No Pedal Edema - Patient Data Result Diagrams: 12/24/17 07:23 12/24/17 07:23 Consult PN Assessment/Plan Procedures: Procedures ASSAY OF TROPONIN QUANT (12/15/17) COMPLETE CBC W/AUTO DIFF WBC (12/15/17) COMPREHEN METABOLIC PANEL (12/15/17) CULTURE OTHR SPECIMN AEROBIC (04/08/17) CULTURE SCREEN ONLY (12/15/17) ELECTROCARDIOGRAM TRACING (12/15/17) EMERGENCY DEPT VISIT (12/15/17) EMERGENCY DEPT VISIT (04/08/17) EMERGENCY DEPT VISIT (10/10/14) GLUCOSE BLOOD TEST (05/24/17) REPAIR OF ABDOMINAL WALL (05/24/17) ROUTINE VENIPUNCTURE (12/15/17) SMEAR GRAM STAIN (04/08/17) STREP A AG IA (12/15/17) TISSUE EXAM BY PATHOLOGIST (05/24/17) X-RAY EXAM CHEST 2 VIEWS (12/15/17) Problem List Initiated/Reviewed/Updated: Yes Plan: ASSESSMENT AND RECOMMENDATIONS TYPE 2 DIABETES MELLITUS-complicated by hyperglycemia during the postoperative period. Likely secondary to IV fluids with dextrose. -Discontinue IV fluids with dextrose -Continue current insulin regimen -Consider adjusting insulins regimen if glucose levels remain elevated after dextrose containing IV fluids have been discontinued Requesting Provider: LYNN Date Consult Requested: 12/25/17 Reason for Consult: Postoperative management of diabetes, hyperglycemia Patient History Reviewed: Yes
[2017-12-26] MEDS: Pantoprazole 40 MG Tab.CR PO SCH (07:29)
[2017-12-26 07:33] VITALS: BP 168/91
[2017-12-26] MEDS: Insulin Lispro 100 Unit/ML 3 ML KwikPen SUBCUT SCH (07:57)
[2017-12-26] MEDS: Docusate Sodium 100 MG Cap PO SCH (08:03)
[2017-12-26] MEDS: Bisacodyl 5 MG Tab PO SCH (08:03)
[2017-12-26] MEDS: Lisinopril 10 MG Tab PO SCH (08:03)
[2017-12-26] MEDS: Insulin Detemir 100 Units/ML 3 ML Pen SUBCUT SCH (08:03)
[2017-12-26] MEDS: Aspirin 81 MG Tab.EC PO SCH (08:03)
--- NOTE | 2017-12-26 10:33 | DISCH ---
ADMISSION DIAGNOSES: 1. Incisional hernia. 2. Type 2 diabetes. 3. Erectile dysfunction. 4. Hyperlipidemia. 5. Chronic left shoulder pain. 6. Essential hypertension. DISCHARGE DIAGNOSES: Diagnostic laparoscopy with lysis of adhesions, repair of incarcerated incisional hernia and incarcerated umbilical hernia with mesh, placement of Vicryl mesh for incarcerated incisional hernia, incarcerated umbilical hernia, and extensive intraabdominal adhesions. Date of surgery, 12/24/2017. Surgeon, Saman Garzon MD. HISTORY: Lazarus Jennings is a 47-year-old male with incisional and umbilical hernias. After preoperative evaluation and discussion of possible risks and possible complications, he wished to proceed with surgical procedure. HOSPITAL COURSE: Lazarus had his surgery on 12/24/2017. He had no operative complications. On postoperative day #1, he was changed to oral pain medication and given bowel stimulation. On postoperative day #2, his appetite was good, he had good oral intake, vital signs were stable, activity was good, pain was well managed, and he was able to be discharged to home without any complications. PHYSICAL EXAMINATION: GENERAL: Lazarus Jennings is a 47-year-old male. VITAL SIGNS: Height is 5 feet 9 inches. Weight is 249 pounds. TPR is 96.5, 84, 18, blood pressure 168/91 and prior to that it had been 128 to 147/74 to 78. HEENT: Negative. NECK: Supple. HEART: Regular rate and rhythm. LUNGS: Clear. ABDOMEN: Sutures intact. There is a roll of Kerlix over hernia site. Abdominal binder has been on. EXTREMITIES: Without peripheral edema. DISPOSITION: Discharged to home. CONDITION: Stable and improving. FOLLOWUP APPOINTMENT: With Saman Garzon MD, at [facility] on 01/02/2018 at 9 a.m. DISCHARGE MEDICATIONS: New prescriptions; 1. Dulcolax 10 mg oral b.i.d., #30. May stop after having a bowel movement. 2. Colace 100 mg oral b.i.d., #100, 11 refills. 3. Dilaudid 2 mg 1 to 2 every 4 hours p.r.n. pain, #40. He is to resume his home medications of; 1. Trulicity 1.5 mg subcu weekly. 2. Toujeo 70 units subcu every morning. 3. NovoLog 15 units subcu 3 times daily. 4. Lisinopril 10 mg oral daily. 5. Ranitidine 150 mg oral daily. 6. Simvastatin 40 mg oral daily. DISCHARGE DIET: Usual diet as tolerated. Drink 8 to 10 glasses of water a day. ACTIVITY: No lifting over 10 pounds for 6 weeks. Walk at least 6 times daily, distance and time as tolerated. Driving after discharge, do not drive while on pain medication. Shower/bathing, may shower. DISCHARGE INSTRUCTIONS: Notify provider if any fever, increased pain, swelling, redness, drainage, nausea, or vomiting. Wound incision care, keep site clean and dry. Wear a rolled- up sock, washcloth or Kerlix over the hernia site, and binder over that for 6 weeks. Special instruction, use incentive spirometer 10 times every hour while awake.
== END 2017-12-26 10:52 | disposition home or self-care (01) | DRG 337 ==
LOC: JP.SDSSCHI 06:50 → JP.SDS 06:50 → EDSTATUS 10:00 → JP.MS 11:00
PROVIDERS: ADMIT Surgery; ATTEND Surgery
PROC: 0WUF4JZ Supplement Abdominal Wall with Synthetic Substitute, Percutaneous Endoscopic Approach (ICD-10-PCS; principal; 2017-12-24)
PROC: 0WUF4JZ Supplement Abdominal Wall with Synthetic Substitute, Percutaneous Endoscopic Approach (ICD-10-PCS; 2017-12-24)
PROC: 0DNW4ZZ Release Peritoneum, Percutaneous Endoscopic Approach (ICD-10-PCS; 2017-12-24)
PROC: 0DNU4ZZ Release Omentum, Percutaneous Endoscopic Approach (ICD-10-PCS; 2017-12-24)
PROC: 3E0M45Z Introduction of Adhesion Barrier into Peritoneal Cavity, Percutaneous Endoscopic Approach (ICD-10-PCS; 2017-12-24)
PROC: 3E0T3BZ Introduction of Anesthetic Agent into Peripheral Nerves and Plexi, Percutaneous Approach (ICD-10-PCS; 2017-12-24)
DX: K43.0 Incisional hernia with obstruction, without gangrene (principal); K42.0 Umbilical hernia with obstruction, without gangrene; K66.0 Peritoneal adhesions (postprocedural) (postinfection); I10 Essential (primary) hypertension; E11.42 Type 2 diabetes mellitus with diabetic polyneuropathy; Z79.4 Long term (current) use of insulin; E78.5 Hyperlipidemia, unspecified; Z87.891 Personal history of nicotine dependence; Z79.82 Long term (current) use of aspirin; Z91.048 Other nonmedicinal substance allergy status; K21.9 Gastro-esophageal reflux disease without esophagitis; M25.512 Pain in left shoulder; G89.29 Other chronic pain
CPT/HCPCS: 36415; 80048; 82962; 85027; 94762; A9270-GY; C1781; J0171; J0330; J0690; J1100; J1170; J1815; J2020; J2185; J2405; J2704; J2710; J2795; J3010; J3301; J3410; J3490; J7030; J7042; J7050

== ENCOUNTER 2018-11-01 20:09 | Emergency (ER) | payer MEDICAID ==
[2018-11-01 21:04] VITALS: BP 162/78; PULSE 104
[2018-11-01] MEDS ORDERED: Ibuprofen 600 MG Tab PO ONE (21:48)
[2018-11-01] MEDS ORDERED: Acetaminophen/oxyCODONE 325-5 MG Tab PO ONE (21:48)
--- NOTE | 2018-11-01 21:53 | EDM.PDOC ---
ED HPI GENERAL MEDICAL PROBLEM - General Chief Complaint: Lower Extremity Injury/Pain Stated Complaint: FOOT HURTS & SWOLLEN Time Seen by Provider: 11/01/18 21:40 Source of Information: Reports: Patient, Old Records History Limitations: Reports: No Limitations - History of Present Illness INITIAL COMMENTS - FREE TEXT/NARRATIVE: 48 yo male presents with L foot pain. Says he was sitting and heard a crack in his foot. When he went to get up he had a lot of pain in the dorsum of that L foot that radiated to the great toe. No tx prior to arrival. Is diabetic. Onset: Today Onset Date: 11/01/18 Onset Time: 19:55 Duration: Minutes:, Constant Location: Reports: Lower Extremity, Left Quality: Reports: Ache Severity: Mild Improves with: Reports: Rest Worsens with: Reports: Movement Context: Reports: Other (see HPI) Associated Symptoms: Reports: No Other Symptoms Treatments RECORD PRESS TENDER: Reports: Other (see below) (none) Left Feet Pain Score (Numeric/FACES): 10 - Related Data Allergies Allergy/AdvReac Type Severity Reaction Status Date / Time cat dander Allergy Chest Verified 12/24/17 07:20 Presssure horse dander Allergy Itching Verified 12/24/17 07:20 turkey feathers Allergy Chest Uncoded 12/24/17 07:20 Presssure Home Meds: Home Meds Aspirin [Aspirin EC] 81 mg PO DAILY 10/10/14 [History] Insulin Aspart [NovoLOG] 18 units SUBCUT TID 10/10/14 [History] Lisinopril 10 mg PO DAILY 10/10/14 [History] Ammonium Lactate [Lac-Hydrin 12% Crm] 140 gm TOP BID 03/08/17 [History] Dulaglutide [Trulicity] 1.5 mg SQ WEEKLY 03/08/17 [History] Ranitidine HCl [Zantac] 150 mg PO BID 03/08/17 [History] Simvastatin [Zocor] 40 mg PO DAILY 03/08/17 [History] Insulin Glargine,Hum.Rec.Anlog [Toujeo Solostar] 80 unit SQ QAM 12/15/17 [ History] Bisacodyl [Dulcolax] 10 mg PO BID #30 tablet 12/26/17 [Rx] Docusate Sodium [Colace] 100 mg PO BID #100 cap 12/26/17 [Rx] Past Medical History HEENT History: Reports: Other (See Below) Other HEENT History: wears reading glasses Cardiovascular History: Reports: High Cholesterol, Hypertension Respiratory History: Reports: Sleep Apnea Gastrointestinal History: Reports: GERD Musculoskeletal History: Reports: Fracture, Other (See Below) Other Musculoskeletal History: left thumb fracture Neurological History: Reports: Neuropathy, Diabetic Endocrine/Metabolic History: Reports: Diabetes, Type II, Obesity/BMI 30+ Dermatologic History: Reports: Other (See Below) Other Dermatologic History: calluses on feet - Infectious Disease History Infectious Disease History: Reports: Chicken Pox, Mumps, Shingles - Past Surgical History Head Surgeries/Procedures: Reports: None HEENT Surgical History: Reports: Oral Surgery Cardiovascular Surgical History: Reports: None GI Surgical History: Reports: Appendectomy, Colon Endocrine Surgical History: Reports: None Musculoskeletal Surgical History: Reports: Carpal Tunnel, Other (See Below) Other Musculoskeletal Surgeries/Procedures:: ACL repair right knee, bone shaved from right great toe Dermatological Surgical History: Reports: None Social & Family History - Family History Family Medical History: Noncontributory HEENT: Reports: Cataract Cardiac: Reports: NE Neurological: Reports: CVA Endocrine/Metabolic: Reports: Diabetes, Type I - Caffeine Use Caffeine Use: Reports: Coffee, Soda Review of Systems - Review of Systems Review Of Systems: See Below Constitutional: Reports: No Symptoms Musculoskeletal: Reports: Foot Pain (left, dorsally) Skin: Reports: No Symptoms Neurological: Reports: No Symptoms ED EXAM, GENERAL - Physical Exam Exam: See Below Exam Limited By: No Limitations General Appearance: Alert, WD/WN, No Apparent Distress, Obese Extremities: Normal Inspection, No Pedal Edema, Other (some dorsal tenderness). No: Non-Tender Neurological: Alert, Oriented, CN II-XII Intact, Normal Cognition, No Motor/ Sensory Deficits Psychiatric: Normal Affect, Normal Mood Skin Exam: Warm, Dry, Intact, Normal Color, No Rash Course - Vital Signs Last Recorded V/S: Last Vital Signs Temp 35.8 C 11/01/18 21:58 Pulse 104 H 11/01/18 21:58 Resp 18 11/01/18 21:58 BP 162/78 H 11/01/18 21:58 Pulse Ox 98 11/01/18 21:58 - Orders/Labs/Meds Orders: Active Orders 24 hr Category Date Time Status Foot Comp Min 3V Lt [CR] Stat Exams 11/01/18 21:47 Taken Meds: Medications Discontinued Medications Generic Name Dose Route Start Last Admin Trade Name Sameer PRN Reason Stop Dose Admin Ibuprofen 600 mg 11/01/18 21:48 11/01/18 22:23 Motrin PO 11/01/18 21:49 600 mg ONETIME ONE Administration Oxycodone/Acetaminophen 1 tab 11/01/18 21:48 11/01/18 22:22 Percocet 325-5 Mg PO 11/01/18 21:49 1 tab ONETIME ONE Administration - Radiology Interpretation Free Text/Narrative:: L foot X-ray-neg Departure - Departure Time of Disposition: 22:52 Disposition: Home, Self-Care 01 Condition: Fair Clinical Impression: Foot pain, left - Discharge Information *PRESCRIPTION DRUG MONITORING PROGRAM REVIEWED*: No *COPY OF PRESCRIPTION DRUG MONITORING REPORT IN PATIENT SIOBHAN: No Referrals: Nakul Garcia MD [Primary Care Provider] - Forms: ED Department Discharge Additional Instructions: Use acetaminophen OR [place] as needed for pain relief. Elevate foot over the weekend. Recheck with your provider next week. Use a cane to help with walking. - My Orders Last 24 Hours: My Active Orders 11/01/18 21:47 Foot Comp Min 3V Lt [CR] Stat - Assessment/Plan Last 24 Hours: My Active Orders 11/01/18 21:47 Foot Comp Min 3V Lt [CR] Stat
--- NOTE | 2018-11-01 23:09 | CRLCR ---
INDICATION: Foot pain, with no injury TECHNIQUE: Foot radiograph 3 views left COMPARISON: None FINDINGS: Bone: No acute fractures or aggressive bone lesions are identified. Joint: The visualized hindfoot, midfoot, and forefoot joints are unremarkable in appearance. No significant ankle effusion is seen. Soft tissue: Unremarkable. No radiopaque foreign bodies are seen. IMPRESSION: 1. No acute osseous injuries or abnormalities are noted. Dictated by: Juan Antonio Welch MD @ 11/01/2018 23:07:20 (Electronically Signed)
== END 2018-11-01 23:07 | disposition home or self-care (01) ==
LOC: JP.ED 20:09
DX: M79.672 Pain in left foot (principal); E78.00 Pure hypercholesterolemia, unspecified; I10 Essential (primary) hypertension; K21.9 Gastro-esophageal reflux disease without esophagitis; E11.40 Type 2 diabetes mellitus with diabetic neuropathy, unspecified; Z91.048 Other nonmedicinal substance allergy status; Z79.82 Long term (current) use of aspirin; Z79.899 Other long term (current) drug therapy; Z79.4 Long term (current) use of insulin
CPT/HCPCS: 73630; 99283; A9270

== ENCOUNTER 2021-02-01 06:19 | Day surgery (SDC) | payer MEDICAID ==
[2021-02-01] MEDS ORDERED: Lidocaine 1% with EPINEPHrine 1:100,000 50 ML MDV ONE (07:09)
[2021-02-01] MEDS ORDERED: Bupivacaine 0.5% 50 ML MDV ONE (07:09)
[2021-02-01] MEDS ORDERED: Sodium Chloride 0.9% 1,000 ML IV SCH (07:15)
[2021-02-01] MEDS ORDERED: Dexamethasone 4 MG/ML SDV ONE (07:44)
[2021-02-01] MEDS ORDERED: Succinylcholine 200 MG/10 ML MDV ONE (07:44)
[2021-02-01] MEDS ORDERED: Neostigmine Methylsulfate 1 MG/ML 5 ML Syringe ONE (07:44)
[2021-02-01] MEDS ORDERED: Rocuronium 50 MG/5 ML Vial ONE (07:44)
[2021-02-01] MEDS ORDERED: Ondansetron 4 MG/2 ML SDV ONE (07:44)
[2021-02-01] MEDS ORDERED: Glycopyrrolate 0.2 MG/ML 5 ML MDV ONE (07:44)
[2021-02-01] MEDS ORDERED: Propofol 200 MG/20 ML SDV ONE (07:44)
[2021-02-01] MEDS ORDERED: fentaNYL 250 MCG/5 ML SDV ONE ×2 (07:44→09:14)
[2021-02-01] MEDS ORDERED: ceFAZolin 2 GM in Premix Bag 1 BAG IV ONE (08:40)
[2021-02-01] MEDS ORDERED: metroNIDAZOLE/Normal Saline 500 MG in Premix Bag 1 BAG IV ONE (08:40)
[2021-02-01] MEDS ORDERED: Lactated Ringers 1,000 ML ONE (09:47)
[2021-02-01] MEDS ORDERED: Docusate Sodium 100 MG Cap PO PRN (10:28)
[2021-02-01] MEDS ORDERED: Benzocaine/Cetylpyridinium/Menthol Lozenge MUCMEM PRN (10:28)
[2021-02-01] MEDS ORDERED: hydrOXYzine HCL 100 MG/2 ML SDV IM PRN (10:28)
[2021-02-01] MEDS ORDERED: Acetaminophen/HYDROcodone 325-5 MG Tab PO PRN (10:28)
[2021-02-01] MEDS ORDERED: Zolpidem 5 MG Tab PO PRN (10:28)
[2021-02-01] MEDS ORDERED: fentaNYL 100 MCG/2 ML SDV IVPUSH PRN ×3 (10:28)
[2021-02-01] MEDS ORDERED: Ondansetron 4 MG/2 ML SDV IVPUSH PRN (10:28)
[2021-02-01] MEDS ORDERED: Scopolamine 1.5 MG Transdermal Patch TOP ONE (10:45)
[2021-02-01] MEDS ORDERED: VERIFY SCOP PATCH TOP SCH (12:00)
--- NOTE | 2021-02-01 13:33 | OR ---
DATE OF PROCEDURE: 02/01/2021 SURGEON: Sander Gomez MD PROCEDURE: Laparoscopic cholecystectomy. FINDINGS: 1. Significant and dense adhesions throughout the entire abdominal cavity. 2. Significantly inflamed gallbladder with necrotic area on the fundus. 3. Dense inflammation and adhesions in the triangle of [place]. PREOPERATIVE DIAGNOSIS: Cholelithiasis, cholecystitis. POSTOPERATIVE DIAGNOSIS: Cholelithiasis, cholecystitis. RISKS: Risks, benefits, alternatives, and limitations including, but not limited to infection, bleeding, perforation of abdominal structures, seroma, hematoma, biloma, cystic duct leaks, common bile duct injuries, and other risks not listed here explained to the patient and he wished to proceed. PROCEDURE IN DETAIL: The patient was placed in supine position. A midline incision was noted and most likely contained large amount of mesh. Therefore, superior to this a 10 mm incision was made. A Veress needle was used to enter the abdomen without abnormality. This was subsequently insufflated. Two additional 10s and two 5s would be introduced due to the patient's significant adhesions which were noted immediately in the abdomen. Blunt dissection was used to remove the adhesions from the omentum. The bowel was identified and was not interacted with in anyway. The entry point was inspected for injury, none was noted. The gallbladder was wrapped in omentum and densely adhesed. Using blunt dissection, this was eventually dissected free. The gallbladder was sclerotic and hard in nature. Eventually after about 20 minutes of dissection, a "clear view" of the gallbladder was obtained with a single pulsatile structure entering the gallbladder and a single non- pulsatile structure entering the gallbladder. The gallbladder was removed approximately greater than 2/3 off the gallbladder bed. By this time, the artery and ducts were subsequently clipped x3 and transected. The remaining 1/3 was removed off the gallbladder bed. Of note, there was essentially no plane between the gallbladder and the associated liver, the gallbladder fossa due to chronic long-standing adhesions and inflammation. This was delivered through the superior port using bag. The abdomen was irrigated. Pressure was dropped. No abnormal bleeding was noted. The entry point and bowel were inspected for enterotomy, none was noted. The air was removed. The wounds were closed with 3-0 Vicryl and 4-0 Vicryl in interrupted running fashion. Dermabond was applied. The patient tolerated procedure well. Sander Gomez MD /[id number]
--- NOTE | 2021-02-01 13:39 | OR ---
DATE OF PROCEDURE: 02/01/2021 SURGEON: Sander Gomez MD PROCEDURES: 1. Bilateral transversus abdominis plan block. 2. Bilateral rectus sheath block. COMPLICATION: None. 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 RISKS: Risks, benefits, alternatives, and limitations including, but not limited to infection, bleeding, injury to abdominal structures were all explained to the patient and they wished to proceed. PROCEDURE IN DETAIL: The patient was placed in supine position. The right transversus plane was identified first, 20% of solution was injected under direct visualization using a 13 megahertz ultrasound probe. This was then repeated on the left side. Bilateral rectus sheaths were also injected under direct visualization using a 13 megahertz ultrasound probe. At no time was the needle blindly advanced and at no time was the needle advanced without ultrasound. 20% was injected in each respective location. The patient tolerated the procedure well. Sander Gomez MD /[id number]
[2021-02-01 14:36] VITALS: BP 130/67; PULSE 109
== END 2021-02-01 14:48 | disposition home or self-care (01) ==
LOC: JP.SDS 06:19
PROVIDERS: ATTEND Surgery
DX: K80.10 Calculus of gallbladder with chronic cholecystitis without obstruction (principal); K66.0 Peritoneal adhesions (postprocedural) (postinfection); E11.42 Type 2 diabetes mellitus with diabetic polyneuropathy; E11.22 Type 2 diabetes mellitus with diabetic chronic kidney disease; I12.9 Hypertensive chronic kidney disease with stage 1 through stage 4 chronic kidney disease, or unspecified chronic kidney disease; N18.32 Chronic kidney disease, stage 3b; E78.5 Hyperlipidemia, unspecified; N52.9 Male erectile dysfunction, unspecified; Z98.890 Other specified postprocedural states; Z79.899 Other long term (current) drug therapy; Z79.82 Long term (current) use of aspirin; Z79.4 Long term (current) use of insulin
CPT/HCPCS: 36415; 47562; 82947; 85025; 87070; 87075; 87205; 88304; A9270; J0171; J0330; J0690; J1100; J2405; J2704; J2710; J2795; J3010; J3490; J7030; J7120

== ENCOUNTER 2021-08-16 14:30 | Emergency (ER) | payer MEDICAID ==
[2021-08-16 15:04] VITALS: BP 168/76; PULSE 90
== END 2021-08-16 16:43 | disposition home or self-care (01) ==
LOC: JP.ED 14:30
DX: S83.91XA Sprain of unspecified site of right knee, initial encounter (principal); E78.00 Pure hypercholesterolemia, unspecified; I10 Essential (primary) hypertension; K21.9 Gastro-esophageal reflux disease without esophagitis; E11.40 Type 2 diabetes mellitus with diabetic neuropathy, unspecified; E66.9 Obesity, unspecified; Z68.41 Body mass index [BMI] 40.0-44.9, adult; Z91.09 Other allergy status, other than to drugs and biological substances; Z79.82 Long term (current) use of aspirin; Z79.4 Long term (current) use of insulin; Z79.899 Other long term (current) drug therapy; Z87.891 Personal history of nicotine dependence; X50.1XXA Overexertion from prolonged static or awkward postures, initial encounter
CPT/HCPCS: 73564-RT; 99283; 99283-25

== ENCOUNTER 2021-11-25 11:30 | Emergency (ER) | payer MEDICAID ==
[2021-11-25 11:51] VITALS: BP 168/92; PULSE 95
[2021-11-25 12:45] LABS: ESTIMATED GFR 51 mL/min (>60)
[2021-11-25] MEDS ORDERED: Gadoteridol 279.3 MG/ML 20 ML SDV IV SCH (13:30)
[2021-11-25] MEDS ORDERED: cefTRIAXone 1 GM in Sodium Chloride 0.9% 50 ML IV ONE (13:32)
[2021-11-25] MEDS ORDERED: Sodium Chloride 0.9% 1,000 ML IV SCH ×2 (13:45→16:15)
== END 2021-11-25 17:00 | disposition home or self-care (01) ==
LOC: JP.ED 11:30
DX: S90.424A Blister (nonthermal), right lesser toe(s), initial encounter (principal); M86.171 Other acute osteomyelitis, right ankle and foot; L08.9 Local infection of the skin and subcutaneous tissue, unspecified; I10 Essential (primary) hypertension; E11.9 Type 2 diabetes mellitus without complications; E66.9 Obesity, unspecified; Z68.41 Body mass index [BMI] 40.0-44.9, adult; Z91.048 Other nonmedicinal substance allergy status; Z79.899 Other long term (current) drug therapy; Z79.82 Long term (current) use of aspirin; Z79.4 Long term (current) use of insulin
CPT/HCPCS: 36415; 73723; 80053; 81001; 82947; 85025; 96365; 99284; A9579; J0696; J7030

== ENCOUNTER 2025-01-29 05:50 | Day surgery (SDC) | payer MEDICAID ==
[2025-01-29 06:43] LABS: PLATELET COUNT,PLT 274.0 K/uL (130-375); RED BLOOD CELL COUNT 5.02 M/uL (4.14-5.76); WHITE BLOOD CELL COUNT,WBC 13.6 K/uL (3.2-11.0)
[2025-01-29 07:09] LABS: A/G RATIO 0.7 (1.2-2.2); ALANINE AMINOTRANSFERASE,ALT 37 U/L (12-78); ASPARTATE AMNIOTRANSFERASE,AST 27 U/L (15-37); BILIRUBIN TOTAL 0.4 mg/dL (0.2-1.0); BLOOD UREA NITROGEN,BUN 19 mg/dL (7-18); CARBON DIOXIDE,CO2 29 mmol/L (21-32); CHLORIDE,CL 101 mmol/L (100-108); CREATININE 1.8 mg/dL (0.8-1.3); EST CRCL DRUG DOSING (CG) 45.28 mL/min; ESTIMATED GFR 43 mL/min (>60); GLUCOSE RANDOM 129 mg/dL (74-106); POTASSIUM,K 3.8 mmol/L (3.6-5.2); PROTEIN TOTAL,TP 7.3 g/dL (6.4-8.2); SODIUM,NA 138 mmol/L (140-148)
[2025-01-29] MEDS: Lactated Ringers 1,000 ML IV SCH (07:17)
[2025-01-29] MEDS: metroNIDAZOLE/Normal Saline 500 MG in Premix Bag 1 BAG IV ONE (07:18)
[2025-01-29] MEDS ORDERED: Succinylcholine 200 MG/10 ML MDV ONE (07:24)
[2025-01-29] MEDS ORDERED: Ondansetron 4 MG/2 ML SDV ONE (07:24)
[2025-01-29] MEDS ORDERED: Glycopyrrolate 0.2 MG/ML 5 ML MDV ONE (07:24)
[2025-01-29] MEDS ORDERED: Propofol 200 MG/20 ML SDV ONE (07:24)
[2025-01-29] MEDS ORDERED: Dexamethasone 4 MG/ML SDV ONE (07:24)
[2025-01-29] MEDS ORDERED: fentaNYL 250 MCG/5 ML SDV ONE (07:24)
[2025-01-29] MEDS ORDERED: Phenylephrine 1% 10 MG/ML SDV ONE (08:20)
[2025-01-29] MEDS ORDERED: Lactated Ringers 1,000 ML ONE (09:33)
[2025-01-29] MEDS ORDERED: fentaNYL 100 MCG/2 ML SDV ONE (09:37)
[2025-01-29 11:55] VITALS: BP 134/66; PULSE 89
== END 2025-01-29 12:30 | disposition home or self-care (01) ==
LOC: JP.SDS 05:50
PROVIDERS: ATTEND Surgery
DX: K43.0 Incisional hernia with obstruction, without gangrene (principal); K66.0 Peritoneal adhesions (postprocedural) (postinfection); I12.9 Hypertensive chronic kidney disease with stage 1 through stage 4 chronic kidney disease, or unspecified chronic kidney disease; E11.22 Type 2 diabetes mellitus with diabetic chronic kidney disease; N18.32 Chronic kidney disease, stage 3b; E78.5 Hyperlipidemia, unspecified; E66.9 Obesity, unspecified; Z79.4 Long term (current) use of insulin; Z68.41 Body mass index [BMI] 40.0-44.9, adult; Z91.09 Other allergy status, other than to drugs and biological substances; Z79.899 Other long term (current) drug therapy; Z87.891 Personal history of nicotine dependence
CPT/HCPCS: 36415; 49616; 80053; 85027; C1781; J0169; J0330; J0665; J0690; J1100; J1596; J1836; J2371; J2405; J2704; J2710; J2795; J3010; J7120; J3490

== ENCOUNTER 2025-04-03 13:10 | Emergency (ER) | payer MEDICAID ==
[2025-04-03 13:33] VITALS: BP 173/98
[2025-04-03 14:14] VITALS: PULSE 84
== END 2025-04-03 14:41 | disposition home or self-care (01) ==
LOC: JP.ED 13:10
DX: S83.91XA Sprain of unspecified site of right knee, initial encounter (principal); I12.9 Hypertensive chronic kidney disease with stage 1 through stage 4 chronic kidney disease, or unspecified chronic kidney disease; N18.9 Chronic kidney disease, unspecified; E11.22 Type 2 diabetes mellitus with diabetic chronic kidney disease; K21.9 Gastro-esophageal reflux disease without esophagitis; Z91.048 Other nonmedicinal substance allergy status; Z88.8 Allergy status to other drugs, medicaments and biological substances; Z79.82 Long term (current) use of aspirin; Z79.4 Long term (current) use of insulin; Z79.899 Other long term (current) drug therapy; Z79.85 Long-term (current) use of injectable non-insulin antidiabetic drugs; Z87.891 Personal history of nicotine dependence; X50.1XXA Overexertion from prolonged static or awkward postures, initial encounter; Y93.89 Activity, other specified
CPT/HCPCS: 73562-26-RT; 73562-RT; 99283